=== PATIENT | female | born 1980 | race African-American/Black ===

== ENCOUNTER 2018-04-10 18:46 | Emergency (ER) | payer OTHER ==
[~2018-04-10] VITALS: Ht 165.1 cm; Wt 99.8 kg
--- NOTE | ~2018-04-10 | EKG ---
[place] [address] [facility] [employer] [place] [address] ELECTROCARDIOGRAM REPORT Name: BRIAN RODRIGUEZFide Bliss [id number] Admission: 04/10/18 Attend Phys: Discharge: 04/10/18 Date of : 76 Report #: [id number] THIS REPORT FOR: //name// [facility] ED Test Date: 2018-04-10 Test Time: 18:52:37 Pat Name: JANELLE RODRIGUEZ Department: Room: Gender: F Pathology Assistant: KKODJOVI : 1980 Requested By: Sammie Espinoza Order Number: [id number] MD: Gee Ashley Measurements Intervals [place] Rate: 66 P: 14 VT: 160 QRS: 24 QRSD: 104 T: 19 QT: 399 QTc: 418 Interpretive Statements Sinus rhythm Normal tracing No previous ECG available for comparison Electronically Signed On 04-13-2018 8:17:49 CDT by Gee Ashley [email or web address] <ELECTRONICALLY SIGNED> By: Gee Ashley MD, [facility] 04/13/18 08 185 1852 Gee Ashley MD, FACC /EPI
[2018-04-10 19:41] LABS: ABSOLUTE NEUTROPHILS 3.5 thou/uL (1.4-8.2); HEMATOCRIT 38.4 % (37.0-47.0); HEMOGLOBIN 13.4 gm/dL (12.0-15.0); LYMPHOCYTES 34.1 % (24.0-44.0); MCH 30.9 pg (26.0-34.0); MCHC 34.8 g/dL (28.0-37.0); MCV 88.7 fL (80.0-100.0); MONOCYTES 8.8 % (1.0-8.0); PLATELET COUNT 361 thou/uL (150-400); POLYS 51.1 % (36.0-66.0); RBC 4.33 mil/uL (4.20-5.00); WBC 6.8 thou/uL (4.0-11.0)
[2018-04-10 19:47] LABS: ANION GAP 4 mmol/L (7-16); BUN 12 mg/dL (7-18); CALCIUM 8.7 mg/dL (8.5-10.1); CHLORIDE 105 mmol/L (98-107); CO2 27 mmol/L (21-32); GLUCOSE 96 mg/dL (74-106); SODIUM 136 mmol/L (136-145)
[2018-04-10 19:55] LABS: TROPONIN-I <0.06 ng/mL (<0.06)
[2018-04-10] MEDS ORDERED: ANTIVERT25 MG PO (20:19)
[2018-04-10 20:44] VITALS: BP 113/79
== END 2018-04-10 21:50 | disposition home or self-care (01) ==
LOC: ER 18:46
PROVIDERS: Emergency Medicine
DX: R42 Dizziness and giddiness (principal); R11.0 Nausea; R07.89 Other chest pain; Z90.89 Acquired absence of other organs

== ENCOUNTER 2019-08-04 07:46 | Emergency (ER) | payer OTHER ==
[~2019-08-04] VITALS: Ht 165.1 cm; Wt 99.8 kg
[~2019-08-04 07:46] MED LIST: ANTIVERT25 MG PO
[2019-08-04 08:36] LABS: ABSOLUTE NEUTROPHILS 3.5 thou/uL (1.4-8.2); BASOPHILS 1.3 % (0.0-2.0); EOSINOPHILS 5.1 % (0.0-3.0); HEMATOCRIT 38.7 % (37.0-47.0); HEMOGLOBIN 13.1 gm/dL (12.0-15.0); LYMPHOCYTES 27.3 % (24.0-44.0); MCHC 33.8 g/dL (28.0-37.0); MCV 88.7 fL (80.0-100.0); MONOCYTES 7.5 % (1.0-8.0); PLATELET COUNT 392 thou/uL (150-400); POLYS 58.8 % (36.0-66.0); RBC 4.36 mil/uL (4.20-5.00); RDW 14.1 % (10.5-14.5)
[2019-08-04 08:40] LABS: CALCIUM 9.2 mg/dL (8.5-10.1); CREATININE 0.9 mg/dL (0.6-1.0); POTASSIUM 3.8 mmol/L (3.5-5.1)
[2019-08-04 08:46] LABS: ALBUMIN 3.5 g/dL (3.4-5.0); TOTAL BILIRUBIN 0.3 mg/dL (<0.1-1.0); TOTAL PROTEIN 7.7 g/dL (6.4-8.2)
[2019-08-04 08:52] LABS: URINE BILIRUBIN NEGATIVE (Negative); URINE BLOOD TRACE (Negative); URINE CLARITY CLEAR; URINE COLOR YELLOW; URINE GLUCOSE-RANDOM* NEGATIVE (Negative); URINE KETONES NEGATIVE (Negative); URINE LEUKOCYTES-REFLEX NEGATIVE (Negative); URINE NITRITE-REFLEX NEGATIVE (Negative); URINE PROTEIN (DIPSTICK) NEGATIVE (Negative); URINE UROBILINOGEN 0.2 E.U./dl (0.2-1.0)
--- NOTE | 2019-08-04 08:57 | EKG ---
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
[2019-08-04] MEDS ORDERED: TYLENOL EXTRA500 MG PO (09:23)
[2019-08-04] MEDS ORDERED: IBUPROFEN 400400 M2 PO (09:23)
[2019-08-04] MEDS ORDERED: ZOFRAN ODT4 MG PO (09:23)
[2019-08-04 10:15] VITALS: BP 127/84
== END 2019-08-04 10:22 | disposition home or self-care (01) ==
LOC: ER 07:46
PROVIDERS: Emergency Medicine Emergency Medical Services
DX: B34.9 Viral infection, unspecified (principal); R11.2 Nausea with vomiting, unspecified; R42 Dizziness and giddiness; Z98.51 Tubal ligation status; Z90.89 Acquired absence of other organs

== ENCOUNTER 2021-05-13 09:27 | Emergency (ER) | payer BC ==
[~2021-05-13] VITALS: Ht 165.1 cm; Wt 96.2 kg
[~2021-05-13 09:27] MED LIST changes: +IBUPROFEN 400400 M2 PO; +TYLENOL EXTRA500 MG PO; +ZOFRAN ODT4 MG PO
[2021-05-13 09:42] VITALS: BP 118/80
[2021-05-13] MEDS ORDERED: DOXYCYCLINE 10100 MG PO (10:42)
== END 2021-05-13 10:47 | disposition home or self-care (01) ==
LOC: ER 09:27
DX: J18.9 Pneumonia, unspecified organism (principal); Z98.51 Tubal ligation status; Z90.89 Acquired absence of other organs

== ENCOUNTER 2021-05-18 17:25 | Emergency (ER) | payer BC, OTHER ==
[~2021-05-18] VITALS: Ht 165.1 cm; Wt 96.2 kg
[~2021-05-18 17:25] MED LIST changes: +DOXYCYCLINE 10100 MG PO
[2021-05-18 17:40] VITALS: BP 125/77
== END 2021-05-18 19:09 | disposition home or self-care (01) ==
LOC: ER 17:25
DX: U07.1 COVID-19 (principal); Z98.51 Tubal ligation status; Z90.89 Acquired absence of other organs